=== PATIENT | male | born 1930 | race Caucasian/White ===

== ENCOUNTER → 2016-09-11 11:31 | Outpatient (CLI) | payer MEDICARE ==
[2016-05-25 12:50] VITALS: BMI 25.8
[~2016-09-11 11:31] MED LIST: BACTRIM DS TABL1 TAB PO; CALAN SR120 MG PO; CIALIS5 MG PO; COUMADIN5 MG PO; COUMADIN7.5 MG PO; HYDROCODONE-APA1 TAB PO; LANOXIN125 MCG PO; LEVOXYL150 MCG PO; PRADAXA150 MG PO; PRAVACHOL20 MG PO; PRILOSEC20 MG PO; SENOKOT-S TABLE1 TAB PO; TENORMIN25 MG PO; VESICARE5 MG PO
== END | disposition home or self-care (01) ==
LOC: D.CT 11:31
DX: R06.00 Dyspnea, unspecified (principal)

== ENCOUNTER 2016-12-24 10:16 | Day surgery (SDC) | payer MEDICARE ==
[~2016-12-24] VITALS: Ht 167.6 cm; Wt 64.5 kg
[2016-12-24 10:52] VITALS: BP 106/80; Ht 167.6 cm; Wt 64.5 kg
[2016-12-24 11:08] LABS: BASOPHILS 0.4 % (0-2); HEMATOCRIT 36.6 % (42.0-54.0); HEMOGLOBIN 11.4 g/dL (13.5-17.5); IMMATURE GRANULOCYTES 0.4 % (0-5); LYMPHOCYTES 25.2 % (15-50); MCH 29.5 pg (26.0-34.0); MCHC 31.1 g/dL (31.0-37.0); MCV 94.8 fL (80.0-100.0); MEAN PLATELET VOLUME 10.3 fL (7.4-10.4); PLATELET COUNT 114 10x3/uL (130-400); RBC 3.86 10x6/uL (4.20-6.10); RDW 18.9 % (11.5-14.5); WBC 5.7 10x3/uL (4.8-10.8)
[2016-12-24 11:20] LABS: CALC OSMOLALITY 278 mosm/kg (275-300); CALCIUM 8.6 mg/dL (8.5-10.1); CARBON DIOXIDE 28.7 mmol/L (21.0-32.0); CHLORIDE - SERUM 105 mmol/L (98-107); GLUCOSE 92 mg/dL (74-106); POTASSIUM - SERUM 4.7 mmol/L (3.5-5.1); SODIUM 139 mmol/L (136-145); UREA NITROGEN 15 mg/dL (7-18); eGFR NON AFRICAN AMERICAN 75 mL/min (90-120)
--- NOTE | 2016-12-24 12:42 | NUR ---
1243-INFLATE TO 18 FRENCHN 18-20 CRE BALLOON.
--- NOTE | 2016-12-24 13:26 | NUR ---
1300- DR. AREVALO AT BEDSIDE SPEAKING WITH PT AND FRIEND ABOUT PROCEDURAL FINDINGS. VSS. PT WITH MINIMAL COUGH AND THROAT IRRITATION REPORTED. "NOT PAINFUL" AND REPORTS NO PROBLEM SWALLOWING SALIVA AT THIS TIME. FULL LIQUIDS GIVEN. WILL MONITOR. 1315- FULL LIQUIDS TOLERATED. SITTING UP WITH HOB ELEVATED. VSS.
--- NOTE | 2016-12-24 13:57 | NUR ---
1330- IV D/C'D, PT TOLERATED. CATHETER INTACT. 1350- DISCHARGE INSTRUCTIONS COMPLETED, PT VERBALIZED UNDERSTANDING. PAPERWORK SIGNED. 1355- DISCHARGED VIA WHEELCHAIR WITH FRIEND.
--- NOTE | 2016-12-30 19:32 | OP ---
PATIENT NAME: KOBY DEE MEDICAL RECORD: [id number] :28 LOCATION:[facility] ADMISSION DATE: SURGEON: AURY AREVALO DO DATE OF OPERATION: 12/24/2016 PROCEDURE: EGD with balloon dilation and biopsies. INDICATIONS FOR PROCEDURE: Dysphagia and heartburn. SCOPE: Olympus video gastroscope. MEDICATIONS: Propofol 150 mg IV per anesthesia. ESTIMATED BLOOD LOSS: Minimal. COMPLICATIONS: None. FINDINGS: Informed consent was given. The patient was made comfortable with the above medication. After reaching an adequate level of sedation by slow IV push, the patient was placed on his left side. The endoscope was then advanced under direct visualization through the mouth to the second portion of the duodenum. The upper, middle, and distal thirds of the esophagus appeared normal. The esophagus was tortuous, but there were no ulcerations or presence of inflammation. At the GE junction, there was some mild narrowing consistent with esophageal stenosis. A CRE balloon was placed through the channel of the endoscope and a dilation was performed up to 20 mm at the GE junction. At the GE junction, there was some mild evidence of LA class A reflux induced esophagitis. The endoscope was advanced through the GE junction into the stomach and retroflexed to view the cardia which revealed a small sliding hiatal hernia. There were some benign appearing fundic gland polyps present in the fundus and body of the stomach consistent with PPI use. The endoscope was advanced through the body of the stomach into the antrum and prepyloric region where there was some erythema and granularity consistent with gastritis. A single biopsy was taken with cold forceps. The endoscope was advanced beyond the pylorus into the duodenum where the bulb and second portion of the duodenum appeared normal. The endoscope was withdrawn from the patient. The patient tolerated the procedure well and there were no complications. IMPRESSION: 1. Esophageal stenosis involving the gastroesophageal junction, dilated to 20 mm with a CRE balloon. 2. LA class A reflux induced esophagitis at the gastroesophageal junction. 3. Benign appearing fundic gland polyps involving the fundus and body of the stomach. 4. Small sliding hiatal hernia. 5. Erythema and granularity of the antrum and prepyloric region consistent with gastritis, biopsies taken. PLAN AND RECOMMENDATIONS: 1. Discharge home when recovery parameters are met. 2. Follow a GERD diet and reflux precautions. 3. Continue current medications including omeprazole 40 mg daily. 4. Consider adding Zantac at night 150 mg q.h.s. for better coverage. 5. If dysphagia persists, consider a modified barium swallow versus a barium esophagram and/or motility study. OPERATIVE REPORT [id number] KOBY DEE 6. Repeat EGD as needed and follow up in the GI clinic as needed. TRANSINT:[id number] Voice Confirmation ID: [id number] DOCUMENT ID: [id number] AURY AREVALO DO at 1932 CC: [id number] DICTATION DATE: 12/24/16 1255 ORGAN TEACHER: 12/24/16 2109 [facility] 12/24/16 [facility] [address] [place] [address]
== END 2016-12-24 13:55 | disposition home or self-care (01) ==
LOC: D.OPS 10:16
PROVIDERS: Anesthesiology
DX: K22.2 Esophageal obstruction (principal); K21.0 Gastro-esophageal reflux disease with esophagitis; K44.9 Diaphragmatic hernia without obstruction or gangrene; K31.7 Polyp of stomach and duodenum

== ENCOUNTER → 2017-03-01 16:13 | Outpatient (CLI) | payer MEDICARE ==
[2016-12-24 10:52] VITALS: BMI 22.9
== END | disposition home or self-care (01) ==
LOC: D.MRI 16:13
DX: M25.512 Pain in left shoulder (principal)

== ENCOUNTER → 2017-08-30 12:14 | Outpatient (CLI) | payer MEDICARE ==
[2016-12-24 10:52] VITALS: BMI 22.9
== END | disposition home or self-care (01) ==
LOC: D.CT 12:14
DX: R05 Cough (principal)

== ENCOUNTER 2018-06-08 11:39 | Outpatient (CLI) | payer MEDICARE ==
[~2018-06-08] VITALS: Ht 167.6 cm; Wt 68.6 kg
[2018-06-08 13:08] VITALS: Ht 167.6 cm; Wt 68.6 kg
== END 2018-06-08 17:50 | disposition home or self-care (01) ==
LOC: D.OPS 11:39
DX: D64.9 Anemia, unspecified (principal); Z01.812 Encounter for preprocedural laboratory examination

== ENCOUNTER → 2018-06-23 11:08 | Outpatient (CLI) | payer MEDICARE ==
[2018-06-08 13:08] VITALS: BMI 24.4
[~2018-06-23 11:08] MED LIST changes: +COREG25 MG PO; +FERREX 28 TABL1 EACH PO; +KLOR-CON 1010 MEQ PO; +LASIX40 MG PO; +OMEPRAZOLE40 MG PO; +PRAVASTATIN SOD10 MG PO; +XARELTO15 MG
[2018-06-23 11:29] LABS: BASOPHILS 0.9 % (0-2); EOSINOPHILS 5.5 % (0-7); HEMATOCRIT 33.6 % (42.0-54.0); HEMOGLOBIN 10.4 g/dL (13.5-17.5); IMMATURE GRANULOCYTES 0.4 % (0-5); LYMPHOCYTES 21.8 % (15-50); MCH 29.1 pg (26.0-34.0); MCV 94.1 fL (80.0-100.0); MEAN PLATELET VOLUME 9.9 fL (7.4-10.4); MONOCYTES 13.2 % (2-11); NEUTROPHILS 58.2 % (40-80); PLATELET COUNT 113 10x3/uL (130-400); RBC 3.57 10x6/uL (4.20-6.10); RDW 16.5 % (11.5-14.5); WBC 5.5 10x3/uL (4.8-10.8)
== END | disposition home or self-care (01) ==
LOC: D.LAB 11:08
PROVIDERS: Internal Medicine Gastroenterology
DX: D64.9 Anemia, unspecified (principal); R19.5 Other fecal abnormalities; R13.10 Dysphagia, unspecified

== ENCOUNTER 2018-06-27 13:05 | Day surgery (SDC) | payer MEDICARE ==
[~2018-06-27] VITALS: Ht 167.6 cm; Wt 65.9 kg
--- NOTE | ~2018-06-27 | OP ---
PATIENT NAME: KOBY DEE MEDICAL RECORD: [id number] :28 LOCATION:[facility] ADMISSION DATE: SURGEON: AURY AREVALO DO DATE OF OPERATION: 06/27/2018 PROCEDURE: Colonoscopy with polypectomy. INDICATIONS FOR PROCEDURE: Anemia, change in bowel habits, recent weight loss. SCOPE: Olympus video pediatric colonoscope. MEDICATIONS: Propofol 300 mg IV per anesthesia. WITHDRAWAL TIME: 19 minutes. ESTIMATED BLOOD LOSS: Minimal. COMPLICATIONS: None. FINDINGS: Informed consent was given. The patient was made comfortable with the above medication. After reaching an adequate level of sedation by slow IV push, the patient was placed on his left side. A digital rectal examination was performed and was normal other than some prostatic hyperplasia. The endoscope was advanced under direct visualization through the rectum to the cecum, confirmed by the presence of the appendiceal orifice and ileocecal valve. There were multiple polyps visualized on today's examination. The first was located in the cecum. There was a mixed flat and sessile polyp, which measured approximately 8 mm in diameter. It was lifted using Eleview solution and snared using a hot snare in endoscopic mucosal resection technique. Due to the defect that was left in the location of this polyp, a single Endoclip was used prophylactically oppose this tissue and prevent post-polypectomy bleeding. As the endoscope was withdrawn further, there was a polyp located in the ascending colon, which was benign appearing and sessile. It measured approximately 4 mm in diameter. It was removed using a hot snare. In the sigmoid colon, there were two benign-appearing sessile polyps, which measured approximately 2-3 mm in diameter. They were both removed using a hot snare. In the rectum, there was a single benign-appearing sessile polyp, which measured approximately 4 mm in diameter. It was removed using a hot snare. There was evidence of mild to moderate diverticulosis of the distal descending and sigmoid colon. There was no evidence of diverticulitis. Retroflexion was performed in the rectum with visualization of grade II internal hemorrhoids without active bleeding. The endoscope was withdrawn from the patient. The patient tolerated the procedure well and there were no complications. IMPRESSION: 1. Five polyps as described above, removed using combination of endoscopic mucosal resection technique and a hot snare polypectomy. 2. Mild to moderate diverticulosis of the distal descending and sigmoid colon. 3. Grade II internal hemorrhoids without active bleeding. PLAN AND RECOMMENDATIONS: 1. Discharge home when recovery parameters are met. 2. Follow up biopsy specimen results. 3. High fiber diet. 4. Continue current medications. OPERATIVE REPORT [id number] KOBY DEE 5. No further colonoscopies are necessary based on the patient's age, unless symptoms warrant evaluation. TRANSINT:[id number] Voice Confirmation ID: [id number] DOCUMENT ID: [id number] AURY AREVALO DO at 0800 CC: [id number] DICTATION DATE: 06/27/18 1637 PIPE MANUFACTURE SUPERVISOR: 06/28/18 0039 [facility] 06/27/18 [id number] [place] [address]
[~2018-06-27 13:05] MED LIST changes: -COREG25 MG PO; -FERREX 28 TABL1 EACH PO; -KLOR-CON 1010 MEQ PO; -LASIX40 MG PO; -OMEPRAZOLE40 MG PO; -PRAVASTATIN SOD10 MG PO; -XARELTO15 MG
[2018-06-27 13:40] LABS: BASOPHILS 1.1 % (0-2); EOSINOPHILS 3.1 % (0-7); HEMATOCRIT 36.6 % (42.0-54.0); HEMOGLOBIN 11.5 g/dL (13.5-17.5); IMMATURE GRANULOCYTES 0.3 % (0-5); LYMPHOCYTES 20.2 % (15-50); MCH 29.5 pg (26.0-34.0); MCHC 31.4 g/dL (31.0-37.0); MCV 93.8 fL (80.0-100.0); MEAN PLATELET VOLUME 10.5 fL (7.4-10.4); MONOCYTES 12.2 % (2-11); NEUTROPHILS 63.1 % (40-80); PLATELET COUNT 129 10x3/uL (130-400); RDW 16.5 % (11.5-14.5); WBC 6.4 10x3/uL (4.8-10.8)
[2018-06-27 13:57] LABS: ANION GAP 13.8 mmol/L (8-16); CALCIUM 9.2 mg/dL (8.5-10.1); CARBON DIOXIDE 29.4 mmol/L (21.0-32.0); CREATININE - SERUM 1.2 mg/dL (0.6-1.3); POTASSIUM - SERUM 5.2 mmol/L (3.5-5.1)
[2018-06-27] MEDS ORDERED: COREG25 MG PO (13:57)
[2018-06-27] MEDS ORDERED: XARELTO15 MG (13:57)
[2018-06-27] MEDS ORDERED: KLOR-CON 1010 MEQ PO (13:58)
[2018-06-27] MEDS ORDERED: OMEPRAZOLE40 MG PO (13:58)
[2018-06-27] MEDS ORDERED: LASIX40 MG PO (14:00)
[2018-06-27] MEDS ORDERED: FERREX 28 TABL1 EACH PO (14:01)
[2018-06-27] MEDS ORDERED: PRAVASTATIN SOD10 MG PO (14:02)
[2018-06-27 14:10] VITALS: BP 128/74; Ht 167.6 cm; Wt 65.9 kg
== END 2018-06-27 17:35 | disposition home or self-care (01) ==
LOC: D.OPS 13:05
PROVIDERS: Anesthesiology
DX: D12.2 Benign neoplasm of ascending colon (principal); D12.8 Benign neoplasm of rectum; K63.5 Polyp of colon; K57.30 Diverticulosis of large intestine without perforation or abscess without bleeding; K64.1 Second degree hemorrhoids; D64.9 Anemia, unspecified; Z01.812 Encounter for preprocedural laboratory examination

== ENCOUNTER → 2018-07-05 10:14 | Outpatient (CLI) | payer MEDICARE ==
[2018-06-27 14:10] VITALS: BMI 23.4
[~2018-07-05 10:14] MED LIST changes: +COREG25 MG PO; +FERREX 28 TABL1 EACH PO; +KLOR-CON 1010 MEQ PO; +LASIX40 MG PO; +OMEPRAZOLE40 MG PO; +PRAVASTATIN SOD10 MG PO; +XARELTO15 MG
== END | disposition home or self-care (01) ==
LOC: D.RAD 10:14
DX: R13.10 Dysphagia, unspecified (principal); D64.9 Anemia, unspecified; R19.5 Other fecal abnormalities

== ENCOUNTER 2018-08-23 16:13 | Inpatient (IN) | payer MEDICARE ==
[~2018-08-23] VITALS: Ht 167.6 cm; Wt 68.0 kg
[2018-08-23 17:18] LABS: BASOPHILS 0.3 % (0-2); EOSINOPHILS 2.4 % (0-7); HEMATOCRIT 32.9 % (42.0-54.0); IMMATURE GRANULOCYTES 0.3 % (0-5); LYMPHOCYTES 20.3 % (15-50); MCH 31.2 pg (26.0-34.0); MCHC 30.4 g/dL (31.0-37.0); MCV 102.5 fL (80.0-100.0); MEAN PLATELET VOLUME 10.6 fL (7.4-10.4); MONOCYTES 2.4 % (2-11); NEUTROPHILS 74.3 % (40-80); PLATELET COUNT 163 10x3/uL (130-400); RBC 3.21 10x6/uL (4.20-6.10); RDW 19.4 % (11.5-14.5); WBC 3.7 10x3/uL (4.8-10.8)
[2018-08-23 17:19] VITALS: BP 127/73
[2018-08-23 17:22] LABS: APTT 41.5 SECONDS (22.8-39.4); INR 3.07 (0.85-1.17)
[2018-08-23 18:32] LABS: ALBUMIN 3.5 g/dL (3.4-5.0); ALKALINE PHOSPHATASE 64 U/L (46-116); ALT (SGPT) 18 U/L (10-68); BILIRUBIN - TOTAL 0.95 mg/dL (0.2-1.3); CALC OSMOLALITY 281 mosm/kg (275-300); CALCIUM 8.4 mg/dL (8.5-10.1); CARBON DIOXIDE 28.8 mmol/L (21.0-32.0); CHLORIDE - SERUM 103 mmol/L (98-107); CREATININE - SERUM 1.2 mg/dL (0.6-1.3); GLUCOSE 103 mg/dL (74-106); POTASSIUM - SERUM 4.1 mmol/L (3.5-5.1); PROTEIN - SERUM 6.9 g/dL (6.4-8.2); SODIUM 141 mmol/L (136-145); UREA NITROGEN 16 mg/dL (7-18); eGFR NON AFRICAN AMERICAN 61 mL/min (90-120)
[2018-08-23 18:43] LABS: CKMB 1.9 U/L (0.0-3.6); CREATINE KINASE 198 UL (21-232); MAGNESIUM - SERUM 2.1 mg/dL (1.8-2.4); TROPONIN-I 0.053 ng/mL (0.000-0.060)
[2018-08-23] MEDS ORDERED: OXYBUTYNIN CHLOR5 MG PO (22:24)
[2018-08-24 01:08] VITALS: BP 110/62
[2018-08-24 03:47] VITALS: BMI 24.2
[2018-08-24 04:27] LABS: ANION GAP 10.5 mmol/L (8-16); BASOPHILS 2.7 % (0-2); CALCIUM 7.9 mg/dL (8.5-10.1); CARBON DIOXIDE 28.4 mmol/L (21.0-32.0); CREATININE - SERUM 1.2 mg/dL (0.6-1.3); EOSINOPHILS 2.4 % (0-7); HEMOGLOBIN 9.2 g/dL (13.5-17.5); IMMATURE GRANULOCYTES 0.3 % (0-5); LYMPHOCYTES 30.1 % (15-50); MCH 30.3 pg (26.0-34.0); MCHC 29.7 g/dL (31.0-37.0); MEAN PLATELET VOLUME 10.6 fL (7.4-10.4); MONOCYTES 4.3 % (2-11); NEUTROPHILS 60.2 % (40-80); PLATELET COUNT 147 10x3/uL (130-400); POTASSIUM - SERUM 3.9 mmol/L (3.5-5.1); RBC 3.04 10x6/uL (4.20-6.10); RDW 19.3 % (11.5-14.5); WBC 3.3 10x3/uL (4.8-10.8)
[2018-08-24 04:33] VITALS: BP 125/64
[2018-08-24 08:30] VITALS: BP 163/60
[2018-08-24 12:12] VITALS: Ht 167.6 cm; Wt 68.0 kg
[2018-08-24 13:02] VITALS: BP 118/78
--- NOTE | 2018-08-24 16:48 | MORECARE ---
CASE MANAGEMENT DISCHARGE SUMMARY PATIENT: KOBY DEE UNIT: [id number] ADM DATE: 08/23/18 AGE: 87 : 29 SEX: M ROOM/BED: D.2216 AUTHOR: JYOTI GREEN PHYSICIAN: REFERRING PHYSICIAN: FABIOLA CARRANZA DO DATE OF SERVICE: 08/24/18 Discharge Plan Patient Name: KOBY DEE [facility] [facility] 1930 Planned Disposition: Anticipated Discharge Date: Discharge Date: Expected LOS: Initial Reviewer: [email or web address] Initial Review Date: 08/23/2018 Generated: 08/24/18 5:47 pm Comments DCP- Discharge Planning Updated by [email or web address]: Sera Rouse on 08/24/18 3:[address] [facility] External Providers External Provider: [facility] Contact Date: Service Request Date: Service Type: Resolution: Reviewer: Comments: Patient Name: KOBY DEE Page [phone] at 1648 All edits/amendments must be made on the electronic document DICTATION DATE: 08/24/181646 ANODE CREW SUPERVISOR: AMBER 08/24/181646 RPT#: [id number] DC DATE: STATUS: ADM IN [facility] [address] [place] [address] END OF REPORT
[2018-08-24 17:14] VITALS: BP 101/49
[2018-08-24 21:44] VITALS: BP 140/74
[2018-08-25 04:43] LABS: BASOPHILS 1.3 % (0-2); EOSINOPHILS 5.3 % (0-7); HEMATOCRIT 31.1 % (42.0-54.0); HEMOGLOBIN 9.3 g/dL (13.5-17.5); MCH 30.4 pg (26.0-34.0); MCHC 29.9 g/dL (31.0-37.0); MCV 101.6 fL (80.0-100.0); MEAN PLATELET VOLUME 10.4 fL (7.4-10.4); MONOCYTES 3.4 % (2-11); PLATELET COUNT 142 10x3/uL (130-400); RBC 3.06 10x6/uL (4.20-6.10); RDW 19.6 % (11.5-14.5); WBC 3.8 10x3/uL (4.8-10.8)
[2018-08-25 04:48] VITALS: BP 127/68
[2018-08-25 05:04] LABS: ALBUMIN 2.9 g/dL (3.4-5.0); ALKALINE PHOSPHATASE 52 U/L (46-116); ALT (SGPT) 15 U/L (10-68); BILIRUBIN - TOTAL 0.77 mg/dL (0.2-1.3); CALC OSMOLALITY 282 mosm/kg (275-300); CALCIUM 7.8 mg/dL (8.5-10.1); CARBON DIOXIDE 26.8 mmol/L (21.0-32.0); CHLORIDE - SERUM 109 mmol/L (98-107); GLUCOSE 91 mg/dL (74-106); MAGNESIUM - SERUM 2.2 mg/dL (1.8-2.4); PHOSPHOROUS 3.5 mg/dL (2.5-4.9); POTASSIUM - SERUM 4.3 mmol/L (3.5-5.1); PROTEIN - SERUM 6.1 g/dL (6.4-8.2); SODIUM 141 mmol/L (136-145); T4 THYROXIN - FREE 1.01 ng/dL (0.76-1.46); THYROID STIMULATING HORMONE 1.45 uIU/mL (0.36-3.74); UREA NITROGEN 17 mg/dL (7-18); eGFR NON AFRICAN AMERICAN 75 mL/min (90-120)
[2018-08-25 08:50] VITALS: BP 101/60
[2018-08-25 16:19] VITALS: BP 100/61
[2018-08-25 21:48] VITALS: BP 101/61
[2018-08-26 00:55] VITALS: BP 110/80
[2018-08-26 04:33] LABS: BASOPHILS 1.7 % (0-2); EOSINOPHILS 5.5 % (0-7); HEMATOCRIT 28.9 % (42.0-54.0); HEMOGLOBIN 8.7 g/dL (13.5-17.5); MCH 30.2 pg (26.0-34.0); MCHC 30.1 g/dL (31.0-37.0); MCV 100.3 fL (80.0-100.0); MEAN PLATELET VOLUME 10.5 fL (7.4-10.4); MONOCYTES 6.6 % (2-11); NEUTROPHILS 61.2 % (40-80); PLATELET COUNT 131 10x3/uL (130-400); RBC 2.88 10x6/uL (4.20-6.10); RDW 19.2 % (11.5-14.5); WBC 3.5 10x3/uL (4.8-10.8)
[2018-08-26 04:49] LABS: ALBUMIN 2.6 g/dL (3.4-5.0); ALKALINE PHOSPHATASE 46 U/L (46-116); ALT (SGPT) 13 U/L (10-68); BILIRUBIN - TOTAL 0.81 mg/dL (0.2-1.3); CALC OSMOLALITY 279 mosm/kg (275-300); CALCIUM 7.6 mg/dL (8.5-10.1); CARBON DIOXIDE 27.4 mmol/L (21.0-32.0); CHLORIDE - SERUM 103 mmol/L (98-107); GLUCOSE 91 mg/dL (74-106); PROTEIN - SERUM 5.6 g/dL (6.4-8.2); SODIUM 139 mmol/L (136-145); UREA NITROGEN 19 mg/dL (7-18); eGFR NON AFRICAN AMERICAN 75 mL/min (90-120)
[2018-08-26 05:35] VITALS: BP 101/66
[2018-08-26] MEDS ORDERED: XOPENEX 0.0.63 MG/3 INH ×2 (07:59)
[2018-08-26] MEDS ORDERED: HYDROCODON-ACE1 EAC7 PO (07:59)
[2018-08-26 08:25] VITALS: BP 104/76
--- NOTE | 2018-08-26 08:49 | MORECARE ---
CASE MANAGEMENT DISCHARGE SUMMARY PATIENT: KOBY DEE UNIT: [id number] ADM DATE: 08/23/18 AGE: 87 : 29 SEX: M ROOM/BED: D.2216 AUTHOR: JYOTI GREEN PHYSICIAN: REFERRING PHYSICIAN: GEORGE CARRANZA DO DATE OF SERVICE: 08/26/18 Discharge Plan Patient Name: KOBY DEE Facility: [facility]:[place] : 1930 Planned Disposition: Inpatient Rehab Anticipated Discharge Date: Discharge Date: Expected LOS: Initial Reviewer: [email or web address] Initial Review Date: 08/23/2018 Generated: 08/26/18 9:49 am Comments DCP- Discharge Planning Updated by [email or web address]: Sera Rouse on 08/26/18 7:[address] Patient Name: KOBY DEE Admission Status: ER Accout number: [id number] Admission Date: 08-23-2018 : 1930 Admission Diagnosis: Attending: George Carranza Current LOS: 3 Anticipated DC Date: Planned Disposition: Inpatient Rehab Primary Insurance: MEDICARE A & B Discharge Planning Comments: CM met with patient to assess discharge planning needs. Patient said that he lives independently at home where he plans to return after [facility]. His son in law or friend will be his ambulette driver home. He has lots of stairs in his home. He still drives himself around. He has a walker, crutch and nebulizer at home .He plans to discharge to inpatient rehab today. IMM served and explained. CM will continue to follow and assist with DC planning. [facility] will be transporting patient. Animation Director: Sera Rouse DCP- Discharge Planning Updated by [email or web address]: Sera Rouse on 08/24/18 3:[address] REFERRAL SENT TO [facility]. LEONA NOTIFIED. DCPIA - Discharge Planning Initial Assessment Updated by [email or web address]: Sera Rouse on 08/26/18 8:45 am * Is the patient Alert and Oriented? Yes * How many steps to enter\exit or inside your home? LOTS * PCP TERE * Pharmacy [facility] * Preadmission Environment Home Alone * ADLs Independent * Equipment Crutch Nebulizer Walker * List name and contact numbers for known caregivers / representatives who currently or will assist patient after discharge: DANNIE ENGLE [phone] * Verbal permission to speak to the caregivers and representatives has been obtained from the patient. N/A * Community resources currently utilized None * Additional services required to return to the preadmission environment? Yes * Can the patient safely return to the preadmission environment? Yes * Has this patient been hospitalized within the prior 30 days at any hospital? No Coverage Notice Reviewer: [email or web address] Kiersten Rouse Notice Issued Date-Time: 08/26/2018 8:40 Notice Type: IM Discharge Notice Notice Delivered To: Patient Relationship to Patient: Termite Technician Name: Delivery Method: HAND - Hand Delivered Heidi Days: Prior Verbal Notification: Recipient Understood Notice: Yes Recipient Signature: Yes Med Rec Note Co-signed by Attending: Coverage Notice Comment: Last DP export: 08/24/18 3:48 p Patient Name: KOBY DEE Page [phone] at 0849 All edits/amendments must be made on the electronic document DICTATION DATE: 08/26/18847 VISUAL MERCHANDISING MANAGER: AMBER 08/26/18847 RPT#: [id number] DC DATE: STATUS: ADM IN [facility] [address] [place] [address] END OF REPORT
[2018-08-26 12:05] VITALS: BP 102/48
--- NOTE | 2018-08-26 12:14 | MORECARE ---
CASE MANAGEMENT DISCHARGE SUMMARY PATIENT: KOBY DEE UNIT: [id number] ADM DATE: 08/23/18 AGE: 87 : 29 SEX: M ROOM/BED: D.2216 AUTHOR: JYOTI GREEN PHYSICIAN: REFERRING PHYSICIAN: GEORGE CARRANZA DO DATE OF SERVICE: 08/26/18 Discharge Plan Patient Name: KOBY DEE Facility: [facility]:[place] : 1930 Planned Disposition: Inpatient Rehab Anticipated Discharge Date: Discharge Date: Expected LOS: Initial Reviewer: [email or web address] Initial Review Date: 08/23/2018 Generated: 08/26/18 1:13 pm Comments DCP- Discharge Planning Updated by [email or web address]: Sera Rouse on 08/26/18 11:[address] patient will be going to inpatient rehab at [facility] they will pick him up at 1:00 nurse notified he will be going to room 111 DCP- Discharge Planning Updated by [email or web address]: Sera Rouse on 08/26/18 7:[address] Patient Name: KOBY DEE Admission Status: ER Accout number: [id number] Admission Date: 08-23-2018 : 1930 Admission Diagnosis: Attending: George Carranza Current LOS: 3 Anticipated DC Date: Planned Disposition: Inpatient Rehab Primary Insurance: MEDICARE A & B Discharge Planning Comments: CM met with patient to assess discharge planning needs. Patient said that he lives independently at home where he plans to return after [facility]. His son in law or friend will be his commercial driver's license driver home. He has lots of stairs in his home. He still drives himself around. He has a walker, crutch and nebulizer at home .He plans to discharge to inpatient rehab today. IMM served and explained. CM will continue to follow and assist with DC planning. [facility] will be transporting patient. Railroad Design Consultant: Sera Rouse DCP- Discharge Planning Updated by [email or web address]: Sera Rouse on 08/24/18 3:[address] REFERRAL SENT TO [facility]. LEONA NOTIFIED. DCPIA - Discharge Planning Initial Assessment Updated by [email or web address]: Sera Rouse on 08/26/18 8:45 am * Is the patient Alert and Oriented? Yes * How many steps to enter\exit or inside your home? LOTS * PCP T[facility] * Pharmacy [facility] * Preadmission Environment Home Alone * ADLs Independent * Equipment Crutch Nebulizer Walker * List name and contact numbers for known caregivers / representatives who currently or will assist patient after discharge: DANNIE ENGLE [phone] * Verbal permission to speak to the caregivers and representatives has been obtained from the patient. N/A * Community resources currently utilized None * Additional services required to return to the preadmission environment? Yes * Can the patient safely return to the preadmission environment? Yes * Has this patient been hospitalized within the prior 30 days at any hospital? No Coverage Notice Reviewer: [id number] - Sera Rouse Notice Issued Date-Time: 08/26/2018 8:40 Notice Type: IM Discharge Notice Notice Delivered To: Patient Relationship to Patient: Brand Designer Name: Delivery Method: HAND - Hand Delivered Heidi Days: Prior Verbal Notification: Recipient Understood Notice: Yes Recipient Signature: Yes Med Rec Note Co-signed by Attending: Coverage Notice Comment: Last DP export: 08/26/18 7:49 am Patient Name: KOBY DEE Page [phone] at 1214 All edits/amendments must be made on the electronic document DICTATION DATE: 08/26/181212 SET UP TECHNICIAN: AMBER 08/26/181212 RPT#: [id number] DC DATE: STATUS: ADM IN [facility] [address] [place] [address] END OF REPORT
--- NOTE | 2018-08-29 10:36 | MORECARE ---
CASE MANAGEMENT DISCHARGE SUMMARY PATIENT: KOBY DEE UNIT: [id number] ADM DATE: 08/23/18 AGE: 88 : 29 SEX: M ROOM/BED: D.2216 AUTHOR: JYOTI GREEN PHYSICIAN: REFERRING PHYSICIAN: GEORGE CARRANZA DO DATE OF SERVICE: 08/29/18 Discharge Plan Patient Name: KOBY DEE Facility: [facility]:[place] : 1930 Planned Disposition: Inpatient Rehab Anticipated Discharge Date: Discharge Date: 08/26/2018 Expected LOS: 0 Initial Reviewer: [email or web address] Initial Review Date: 08/23/2018 Generated: 08/29/18 11:36 am Comments DCP- Discharge Planning Updated by [email or web address]: Sera Rouse on 08/26/18 11:[address] patient will be going to inpatient rehab at [facility] they will pick him up at 1:00 nurse notified he will be going to room 111 DCP- Discharge Planning Updated by [email or web address]: Sera Rouse on 08/26/18 7:[address] Patient Name: KOBY DEE Admission Status: ER Accout number: [id number] Admission Date: 08-23-2018 : 1930 Admission Diagnosis: Attending: George Carranza Current LOS: 3 Anticipated DC Date: Planned Disposition: Inpatient Rehab Primary Insurance: MEDICARE A & B Discharge Planning Comments: CM met with patient to assess discharge planning needs. Patient said that he lives independently at home where he plans to return after [facility]. His son in law or friend will be his milk wagon driver home. He has lots of stairs in his home. He still drives himself around. He has a walker, crutch and nebulizer at home .He plans to discharge to inpatient rehab today. IMM served and explained. CM will continue to follow and assist with DC planning. [facility] will be transporting patient. Shell Mold Bonder: Sera Rouse DCP- Discharge Planning Updated by [email or web address]: Sera Rouse on 08/24/18 3:[address] REFERRAL SENT TO [facility]. LEONA NOTIFIED. DCPIA - Discharge Planning Initial Assessment Updated by [email or web address]: Sera Rouse on 08/26/18 8:45 am * Is the patient Alert and Oriented? Yes * How many steps to enter\exit or inside your home? LOTS * PCP [facility] * Pharmacy [facility] * Preadmission Environment Home Alone * ADLs Independent * Equipment Crutch Nebulizer Walker * List name and contact numbers for known caregivers / representatives who currently or will assist patient after discharge: DANNIE ENGLE [phone] * Verbal permission to speak to the caregivers and representatives has been obtained from the patient. N/A * Community resources currently utilized None * Additional services required to return to the preadmission environment? Yes * Can the patient safely return to the preadmission environment? Yes * Has this patient been hospitalized within the prior 30 days at any hospital? No Coverage Notice Reviewer: [id number] - Sera Rouse Notice Issued Date-Time: 08/26/2018 8:40 Notice Type: IM Discharge Notice Notice Delivered To: Patient Relationship to Patient: Career Development Consultant Name: Delivery Method: HAND - Hand Delivered Heidi Days: Prior Verbal Notification: Recipient Understood Notice: Yes Recipient Signature: Yes Med Rec Note Co-signed by Attending: Coverage Notice Comment: Last DP export: 08/26/18 11:13 am Patient Name: KOBY DEE Page 99987 at 1036 All edits/amendments must be made on the electronic document DICTATION DATE: 08/29/18 1035 ORDER ENTRY SPECIALIST: AMBER 08/29/18 1035 RPT#: [id number] DC DATE:08/26/18 STATUS: DIS IN [facility] [address] [place] [address] END OF REPORT
[2018-08-30 10:19] LABS: IMMUNOGLOBULIN E 30 IU/mL (0-100)
== END 2018-08-26 13:45 | DRG 604 ==
LOC: D.ER 16:13 → D.MS 19:59
PROVIDERS: Family Medicine; Internal Medicine Pulmonary Disease; ADMIT Family Medicine
DX: S40.012A Contusion of left shoulder, initial encounter (principal); I50.23 Acute on chronic systolic (congestive) heart failure; J96.01 Acute respiratory failure with hypoxia; I50.22 Chronic systolic (congestive) heart failure; S30.0XXA Contusion of lower back and pelvis, initial encounter; D46.9 Myelodysplastic syndrome, unspecified; I48.91 Unspecified atrial fibrillation; K21.9 Gastro-esophageal reflux disease without esophagitis; R55 Syncope and collapse

== ENCOUNTER 2018-12-26 09:48 | Day surgery (SDC) | payer MEDICARE | END 2018-12-26 13:48 | disposition home or self-care (01) | LOC: D.OPS 09:48 | DX: D64.9 Anemia, unspecified (principal); R13.10 Dysphagia, unspecified; D69.6 Thrombocytopenia, unspecified; R63.4 Abnormal weight loss ==

== ENCOUNTER → 2019-01-25 12:29 | Outpatient (CLI) | payer MEDICARE ==
[2018-12-26 10:59] VITALS: BMI 24.7
[~2019-01-25 12:29] MED LIST changes: +CIALIS10 MG PO; +HYDROCODON-ACE1 EAC7 PO; +OXYBUTYNIN CHLOR5 MG PO; +XOPENEX 0.0.63 MG/3 INH
== END | disposition home or self-care (01) ==
LOC: D.RAD 01-03 13:00
PROVIDERS: ATTEND Internal Medicine Gastroenterology
DX: R13.12 Dysphagia, oropharyngeal phase (principal)

== ENCOUNTER → 2019-08-04 13:57 | Outpatient (CLI) | payer MEDICARE ==
[2018-12-26 10:59] VITALS: BMI 24.7
== END | disposition home or self-care (01) ==
LOC: D.HCCECHO 13:57
PROVIDERS: ATTEND Internal Medicine Cardiovascular Disease
DX: I25.10 Atherosclerotic heart disease of native coronary artery without angina pectoris (principal)